=== PATIENT | female | born 1965 | race Caucasian/White ===

== ENCOUNTER 2018-06-14 05:40 | Inpatient (IN) ==
[2018-06-14] MEDS ORDERED: Aspirin 81 MG TAB.CHEW PO ONE (05:55)
[2018-06-14] MEDS ORDERED: Nitroglycerin 0.4 MG TAB.SUBL SL ONE (05:55)
[2018-06-14] MEDS ORDERED: Ondansetron 4 MG/2 ML VIAL IVP ONE (05:58)
--- NOTE | 2018-06-14 05:59 | Emergency Department Note ---
START Narrative - START START: 52-year-old female complains of chest pain. She mentions that started approximately 3 hours prior to her arrival. Pain is coming with right upper extremity pain, shortness of breath, nausea. She describes it as someone coming up in her chest. She took one baby aspirin and 2 nitroglycerin at home and improvement of her symptoms. She mentioned she was recently diagnosed with influenza with a rapid strep test at urgent care, as well as a sinus infection, has been taking amoxicillin, which had given her diarrhea. She does mention a history of elevated blood pressure in the past. This is a start note. I reviewed nursing notes, and vital signs. Care of this patient will be continued with dayshift provider Justyna Parisi PA-C. Please see her documentation for additional details. Patient does have elevated blood pressure. Initial chest pain workup has been ordered. Initially, I ordered aspirin, nitroglycerin, and Zofran.
[2018-06-14 06:30] LABS: BUN/Creatinine Ratio 20 (6-26); Blood Urea Nitrogen 14 mg/dL (6-20); Carbon Dioxide 28 mEq/L (23-29); Chloride 103 mEq/L (98-107); Glucose 112 mg/dL (70-105); Osmolality,Calculated 289 (280-300); Potassium 3.2 mEq/L (3.5-5.1); Sodium 139 mEq/L (136-145); Troponin I < 0.03 ng/mL (< 0.04); eGFR For Non-African Americans > 60 (> 60)
--- NOTE | 2018-06-14 06:30 | Emergency Department Note ---
Disposition Clinical Impression: Hypertensive emergency, Influenza Chest pain Qualifiers: Chest pain type: precordial pain Qualified Code(s): R07.2 - Precordial pain Pulmonary edema Qualifiers: Chronicity: acute Qualified Code(s): J81.0 - Acute pulmonary edema Disposition: Admitted As Inpatient Condition: Fair Chest Pain HPI - General Chief Complaint: ED Chest Pain Stated Complaint: chest pain Time Seen by Provider: 06/14/18 05:44 Source: patient Limitations: no limitations Vital Signs Reviewed: Yes Nursing Notes Reviewed: Yes - History of Present Illness Severity scale (1-10): 8 - Related Data Home Medications Medication Instructions Recorded Confirmed RX: Aspirin Enteric Coated 81 mg PO DAILY 05/20/15 06/14/18 [Aspirin EC] RX: Butalb/Acetaminophen/Caffeine 1 cap PO Q4H PRN 05/20/15 06/14/18 [Fioricet 50-300-40 mg Capsule] RX: metFORMIN [Glucophage] 250 mg PO DAILY 05/20/15 06/14/18 RX: Atorvastatin [Lipitor] 40 mg PO HS 09/21/15 06/14/18 RX: Carvedilol [Coreg] 25 mg PO BID 09/21/15 06/14/18 RX: CloNIDine Patch [Catapres-Tts] 0.3 mg TD QWEEK 07/15/17 06/14/18 RX: Esomeprazole Magnesium [Nexium] 40 mg PO DAILY 07/15/17 06/14/18 RX: Gabapentin [Neurontin] 800 mg PO QID 07/15/17 06/14/18 RX: Lisinopril [Zestril] 40 mg PO QPM 07/15/17 06/14/18 RX: Methocarbamol [Robaxin] 500 mg PO QID 07/15/17 06/14/18 RX: Tizanidine HCl [Zanaflex] 4 mg PO QPM 07/15/17 06/14/18 RX: Albuterol Neb [Proventil Neb] 2.5 mg IH QID 09/30/17 06/14/18 RX: Budesonide/Formoterol 160/4.5 2 puff IH BIDR 09/30/17 06/14/18 [Symbicort 160/4.5] RX: Cholecalciferol (D-3) [Vitamin 1,000 unit PO DAILY 09/30/17 06/14/18 D] RX: Diclofenac Sodium [Voltaren] 1 appl TP QID PRN 09/30/17 06/14/18 RX: Ibuprofen [Motrin] 800 mg PO TID PRN 09/30/17 06/14/18 RX: Ipratropium [ATROVENT Inhaler] 2 puff IH QID 09/30/17 06/14/18 RX: Multivit-Min/FA/Lycopen/Lutein 1 tab PO DAILY 09/30/17 06/14/18 [Certavite Sr-Antioxidant Tab] RX: Nitroglycerin [Nitrostat] 0.4 mg SL Q5M PRN 09/30/17 06/14/18 RX: Potassium Chloride [K-Tab ER] 20 meq PO DAILY 09/30/17 06/14/18 RX: Promethazine [Phenergan] 25 mg PO Q12H PRN 09/30/17 06/14/18 RX: aMILoride [Midamor] 5 mg PO BID 09/30/17 06/14/18 RX: Ergocalciferol (VITAMIN D2) 50,000 unit PO QWEEK 02/16/18 06/14/18 [Vitamin D2] RX: Furosemide [Lasix] 20 mg PO DAILY 02/16/18 06/14/18 Albuterol Sulfate [Albuterol 1 puff IH Q4H PRN 06/14/18 06/14/18 Inhaler] Citalopram Hydrobromide 40 mg PO QPM 06/14/18 06/14/18 [Citalopram HBr] Isosorbide MONOnitrate [Isosorbide 30 mg PO DAILY 06/14/18 06/14/18 Mononitrate ER] Loratadine [Allergy Relief] 10 mg PO DAILY 06/14/18 06/14/18 RX: Amlodipine Besylate 10 mg PO QPM 06/14/18 06/14/18 RX: hydrOXYzine HCl [Hydroxyzine 25 mg PO TID 06/14/18 06/14/18 HCl] Topiramate [Topamax] 100 mg PO BID 06/14/18 06/14/18 Previous Rx's Medication Instructions Recorded RX: Chlorthalidone 50 mg PO QAM 30 Days #30 tablet 02/17/18 RX: Spironolactone [Aldactone] 50 mg PO BID #60 tablet 03/10/18 Allergies Allergy/AdvReac Type Severity Reaction Status Date / Time naproxen Allergy Hives Verified 06/14/18 09:26 Chest Pain PMH - Past Medical History Medical history: Reports: asthma, diabetes, hyperlipidemia, hypertension Surgical history: Reports: other Psychiatric history: Reports: depression [employer] MANAGER history: Reports: dysfunctional uterine bleed, bilateral tubal ligation, other - Social History Smoking Status: Never smoker Alcohol use: Reports: none Drug use: Reports: none Physical Exam - General Limitations: no limitations General appearance: alert, in no apparent distress Course Vital Signs Temperature 98 F 06/14/18 05:41 Pulse Rate 77 06/14/18 05:41 Respiratory Rate 12 06/14/18 05:41 Blood Pressure 235/138 06/14/18 05:41 O2 Sat by Pulse Oximetry 99 06/14/18 05:41 Temperature 97.6 F 06/14/18 16:35 Pulse Rate 62 06/14/18 17:00 Respiratory Rate 12 06/14/18 17:00 Blood Pressure 143/87 06/14/18 17:00 O2 Sat by Pulse Oximetry 93 06/14/18 17:00 Oxygen Delivery Oxygen Delivery Room Air Chest Pain - Lab Data Result diagrams: 06/14/18 05:58 06/14/18 05:58 Lab Results 06/14/18 06/14/18 06/14/18 Range/Units 05:58 05:58 05:58 WBC 8.7 (4.3-11.1) K/mcL RBC 4.80 (3.82-4.97) M/mcL Hgb 13.8 (11.5-15.4) g/dL Hct 41.2 (35.3-44.9) % MCV 85.8 (83.0-100.0) fL MCH 28.8 (28.0-33.3) pg MCHC 33.5 (31.6-35.5) g/dL RDW 13.5 (11.5-14.5) % Plt Count 279 (140-400) K/mcL MPV 11.6 (9.4-12.4) fL Immature Gran % 0.1 (0-4) % Seg Neutrophils % 65.6 % Lymphocytes % 24.4 % Monocytes % 7.4 % Eosinophils % 1.9 % Basophils % 0.6 % Neutrophils # 5.7 (1.6-8.9) K/mcL Lymphocytes # 2.1 (0.6-4.6) K/mcL Monocytes # 0.7 (0.0-1.3) K/mcL Eosinophils # 0.2 (0.0-0.6) K/mcL Basophils # 0.1 (0.0-0.2) K/mcL D-Dimer 416 (0-500) ng/mLFEU Sodium 139 (136-145) mEq/L Potassium 3.2 L (3.5-5.1) mEq/L Chloride 103 (98-107) mEq/L Carbon Dioxide 28 (23-29) mEq/L BUN 14 (6-20) mg/dL Creatinine 0.70 (0.60-1.20) mg/dL Est GFR ( Amer) > 60 (> 60) Est GFR (Non-Af Amer) > 60 (> 60) BUN/Creatinine Ratio 20 (6-26) Glucose 112 H (70-105) mg/dL Calculated Osmolality 289 (280-300) Calcium 9.0 (8.6-10.3) mg/dL Total Bilirubin (0.3-1.0) mg/dL Direct Bilirubin (0.0-0.2) mg/dL Indirect Bilirubin (0.0-1.2) mg/dL AST (13-39) Units/L ALT (7-52) Units/L Alkaline Phosphatase (34-104) Units/L Troponin I < 0.03 (< 0.04) ng/mL Serum Total Protein (6.4-8.9) g/dL Albumin (3.5-5.7) g/dL Globulin (2.4-3.5) g/dL Albumin/Globulin Ratio (1.1-2.2) Urine Color (Yellow) Urine Clarity (Clear) Urine pH (5.0-8.0) pH Units Ur Specific [place] (1.010-1.025) Urine Protein (Neg-Trace) mg/dL Urine Glucose (UA) (Normal) mg/dL Urine Ketones (Negative) mg/dL Urine Blood (Negative) Urine Nitrite (Negative) Urine Bilirubin (Negative) Urine Urobilinogen (Normal) mg/dL Ur Leukocyte Esterase (Negative) Urine Microscopic RBC (0-3) per hpf Urine Microscopic WBC (0-3) per hpf Ur Squamous Epith Cells (None-Few) per lpf Urine Bacteria (None-Few) per hpf Hyaline Casts (None-Few) per lpf Ur Culture Indicated? (NO) 06/14/18 06/14/18 06/14/18 Range/Units 05:58 06:29 11:35 WBC (4.3-11.1) K/mcL RBC (3.82-4.97) M/mcL Hgb (11.5-15.4) g/dL Hct (35.3-44.9) % MCV (83.0-100.0) fL MCH (28.0-33.3) pg MCHC (31.6-35.5) g/dL RDW (11.5-14.5) % Plt Count (140-400) K/mcL MPV (9.4-12.4) fL Immature Gran % (0-4) % Seg Neutrophils % % Lymphocytes % % Monocytes % % Eosinophils % % Basophils % % Neutrophils # (1.6-8.9) K/mcL Lymphocytes # (0.6-4.6) K/mcL Monocytes # (0.0-1.3) K/mcL Eosinophils # (0.0-0.6) K/mcL Basophils # (0.0-0.2) K/mcL D-Dimer (0-500) ng/mLFEU Sodium (136-145) mEq/L Potassium (3.5-5.1) mEq/L Chloride (98-107) mEq/L Carbon Dioxide (23-29) mEq/L BUN (6-20) mg/dL Creatinine (0.60-1.20) mg/dL Est GFR ( Amer) (> 60) Est GFR (Non-Af Amer) (> 60) BUN/Creatinine Ratio (6-26) Glucose (70-105) mg/dL Calculated Osmolality (280-300) Calcium (8.6-10.3) mg/dL Total Bilirubin 0.4 (0.3-1.0) mg/dL Direct Bilirubin 0.0 (0.0-0.2) mg/dL Indirect Bilirubin 0.4 (0.0-1.2) mg/dL AST 11 L (13-39) Units/L ALT 20 (7-52) Units/L Alkaline Phosphatase 64 (34-104) Units/L Troponin I < 0.03 (< 0.04) ng/mL Serum Total Protein 7.1 (6.4-8.9) g/dL Albumin 4.2 (3.5-5.7) g/dL Globulin 2.9 (2.4-3.5) g/dL Albumin/Globulin Ratio 1.4 (1.1-2.2) Urine Color Yellow (Yellow) Urine Clarity Clear (Clear) Urine pH 7.0 (5.0-8.0) pH Units Ur Specific [place] 1.011 (1.010-1.025) Urine Protein 30 H (Neg-Trace) mg/dL Urine Glucose (UA) Normal (Normal) mg/dL Urine Ketones Negative (Negative) mg/dL Urine Blood Negative (Negative) Urine Nitrite Negative (Negative) Urine Bilirubin Negative (Negative) Urine Urobilinogen Normal (Normal) mg/dL Ur Leukocyte Esterase Negative (Negative) Urine Microscopic RBC 0-3 (0-3) per hpf Urine Microscopic WBC 0-3 (0-3) per hpf Ur Squamous Epith Cells Many H (None-Few) per lpf Urine Bacteria None Seen (None-Few) per hpf Hyaline Casts None Seen (None-Few) per lpf Ur Culture Indicated? NO (NO) Attestation Statement - Attestation Attestation: Medical screening examination/treatment/procedure(s) were conducted as a shared visit with non-physician practitioner(s) and myself. I personally evaluated the patient during the encounter. Patient multiple risk factors presenting today with chest pain and elevated blood pressure greater than 230. Patient has been getting over the flu. Unknown medication to help. Pain started earlier this morning and has been associated with worsening symptoms with exertion into the hospital. Partially relieved with nitroglycerin. Nitroglycerin gave her a headache. Patient is undergoing further laboratory investigation. She will require medical management of hypertension as well as a likely admission. Patient did not have any focal neurologic deficits on my exam. Regular rate and rhythm with lungs clear to auscultation bilaterally.
[2018-06-14 06:35] LABS: Basophils # 0.1 K/mcL (0.0-0.2); Basophils % 0.6 %; Eosinophils # 0.2 K/mcL (0.0-0.6); Eosinophils % 1.9 %; Hematocrit 41.2 % (35.3-44.9); Hemoglobin 13.8 g/dL (11.5-15.4); Immature Granulocytes % 0.1 % (0-4); Lymphocytes # 2.1 K/mcL (0.6-4.6); Lymphocytes % 24.4 %; Mean Corpuscular HGB Conc 33.5 g/dL (31.6-35.5); Mean Corpuscular Hemoglobin 28.8 pg (28.0-33.3); Mean Corpuscular Volume 85.8 fL (83.0-100.0); Mean Platelet Volume 11.6 fL (9.4-12.4); Monocytes # 0.7 K/mcL (0.0-1.3); Monocytes % 7.4 %; Neutrophils # 5.7 K/mcL (1.6-8.9); Platelet Count 279 K/mcL (140-400); Red Cell Distribution Width 13.5 % (11.5-14.5); Segmented Neutrophils % 65.6 %
[2018-06-14] MEDS ORDERED: *HR* Morphine 2 MG/ML SYRINGE IVP ONE (06:39)
[2018-06-14] MEDS ORDERED: Nitroglycerin 25 MG/250 ML INFUS..BTL IVC SCH (06:45)
--- NOTE | 2018-06-14 06:48 | Emergency Department Note ---
Disposition Clinical Impression: Hypertensive emergency, Influenza Chest pain Qualifiers: Chest pain type: precordial pain Qualified Code(s): R07.2 - Precordial pain Pulmonary edema Qualifiers: Chronicity: acute Qualified Code(s): J81.0 - Acute pulmonary edema Disposition: Admitted As Inpatient Condition: Fair Referrals: Rosalie Cosby DO [Primary Care Provider] - Forms: ED Satisfaction Letter Chest Pain HPI - General Chief Complaint: ED Chest Pain Stated Complaint: chest pain Time Seen by Provider: 06/14/18 05:44 Source: patient Mode of arrival: private vehicle Limitations: no limitations Vital Signs Reviewed: Yes Nursing Notes Reviewed: Yes - History of Present Illness HPI Narrative: Patient with recent diagnosis of influenza, history of hypertension on three blood pressure meds, diabetes and hyperlipidemia presents from home for evaluation of chest pain and shortness of breath. The chest pain woke her from sleep. It radiates into her left arm. She took two of her prescribed nitrogl ycerin with little to no relief so she came here for evaluation. The shortness of breath she attributes to her known COPD and states that her blood pressure has been elevated this week so for the past three days. She has not used her inhalers because when she uses them her blood pressure typically goes up. Patient was diagnosed with influenza on Saturday of last week. She was not started on any antivirals, but states that she was given a prescription for amoxicillin for a "sinus infection." She denies fever chills nausea vomiting diarrhea abdominal pain dizziness, vertigo, syncope, rash, sore throat, facial pain or swelling, neck pain or stiffness. She does describe a frontal headache, but states that it started shortly after taking the second nitroglycerin. She has had a headache like this in the past. It came on gradually. It is not the worst headache of her life. Pt complaint: chest pain Onset (ago): hour(s) Duration: constant Onset: during rest, awoke with symptoms Pain Location: substernal Severity: moderate Severity scale (1-10): 8 Quality: heaviness Pain Radiation: RUE Improves with: nothing Worsens with: nothing (Social) Context: recent illness (Dx - Influenza this past Saturday. Patient states that she had a positive flu test.), history of DVT/PE (DVT several years ago. Not on any oral anticoagulants.) Associated symptoms: Reports: nausea, dyspnea (Hx of COPD. Has not used her inhalers in 3 days b/c her BP has been up and she feels that her inhalers make her BP increase.). Denies: vomiting, diaphoresis, sense of impending doom, syn cope, palpitations, fever, cough, leg swelling, other Treatments prior to arrival chest pain: none - Related Data On Oral Contraceptives: No Home Medications Medication Instructions Recorded Confirmed Albuterol Sulfate [Albuterol 1 - 2 puff IH Q4HR PRN 05/20/15 02/16/18 Inhaler] Amlodipine [Norvasc] 10 mg PO QPM 05/20/15 02/16/18 Aspirin Enteric Coated [Aspirin EC] 81 mg PO DAILY 05/20/15 02/16/18 Butalb/Acetaminophen/Caffeine 1 cap PO Q4H PRN 05/20/15 02/16/18 [Fioricet 50-300-40 mg Capsule] Citalopram [CeleXA] 40 mg PO QPM 05/20/15 02/16/18 Loratadine [Claritin] 10 mg PO DAILY 05/20/15 02/16/18 Topiramate [Topamax] 50 mg PO BID 05/20/15 02/16/18 metFORMIN [Glucophage] 250 mg PO DAILY 05/20/15 02/16/18 Atorvastatin [Lipitor] 40 mg PO HS 09/21/15 02/16/18 Carvedilol [Coreg] 25 mg PO BID 09/21/15 02/16/18 CloNIDine Patch [Catapres-Tts] 0.3 mg TD QWEEK 07/15/17 02/16/18 Esomeprazole Magnesium [Nexium] 40 mg PO DAILY 07/15/17 02/16/18 Gabapentin [Neurontin] 800 mg PO QID 07/15/17 02/16/18 Lisinopril [Zestril] 40 mg PO QPM 07/15/17 02/16/18 Methocarbamol [Robaxin] 500 - 1,000 mg PO QID 07/15/17 02/16/18 Tizanidine HCl [Zanaflex] 4 mg PO TID 07/15/17 02/16/18 Albuterol Neb [Proventil Neb] 2.5 mg IH QID 09/30/17 02/16/18 Budesonide/Formoterol 160/4.5 2 puff IH BIDR 09/30/17 02/16/18 [Symbicort 160/4.5] Cholecalciferol (D-3) [Vitamin D] 1,000 unit PO DAILY 09/30/17 02/16/18 Citalopram [CeleXA] 20 mg PO QAM 09/30/17 02/16/18 Diclofenac Sodium [Voltaren] 1 appl TP QID 09/30/17 02/16/18 Ibuprofen [Motrin] 800 mg PO TID PRN 09/30/17 02/16/18 Ipratropium [ATROVENT Inhaler] 2 puff IH QID 09/30/17 02/16/18 Multivit-Min/FA/Lycopen/Lutein 1 tab PO DAILY 09/30/17 02/16/18 [Certavite Sr-Antioxidant Tab] Nitroglycerin [Nitrostat] 0.4 mg SL Q5M PRN 09/30/17 02/16/18 Potassium Chloride [K-Tab ER] 20 meq PO DAILY 09/30/17 02/16/18 Promethazine [Phenergan] 25 mg PO Q12H 09/30/17 02/16/18 aMILoride [Midamor] 5 mg PO BID 09/30/17 02/16/18 Ergocalciferol (VITAMIN D2) 50,000 unit PO QWEEK 02/16/18 02/16/18 [Vitamin D2] Furosemide [Lasix] 20 mg PO DAILY 02/16/18 02/16/18 Previous Rx's Medication Instructions Recorded Docusate [Colace] 100 mg PO BID #30 capsule 09/30/17 Chlorthalidone 50 mg PO QAM 30 Days #30 tablet 02/17/18 Spironolactone [Aldactone] 25 mg PO BID 30 Days #60 tablet 02/17/18 Spironolactone [Aldactone] 50 mg PO BID #60 tablet 03/10/18 Allergies Allergy/AdvReac Type Severity Reaction Status Date / Time naproxen Allergy Hives Verified 10/15/17 10:24 All systems ED: reviewed and negative except as stated. Review of Systems: As Per HPI Constitutional: Denies: fever, chills, weakness, weight change, night sweats Eyes: Denies: eye pain, eye discharge, vision change ENT ED: Denies: ear pain, throat pain, congestion, dysphagia Cardiovascular: Reports: as per HPI, chest pain, dyspnea on exertion ("a little"). Denies: palpitations, orthopnea, edema, syncope, paroxysmal nocturnal dyspnea Respiratory: Reports: as per HPI, dyspnea. Denies: cough, wheezes, hemoptysis, stridor, sputum production Gastrointestinal: Reports: nausea. Denies: abdominal pain, vomiting, diarrhea, constipation, hematemesis, melena, hematochezia Genitourinary: Denies: urgency, dysuria, frequency, hematuria Musculoskeletal: Denies: back pain, neck pain, joint swelling, arthralgia, myalgia Integumentary: Denies: rash Neurological: Denies: headache, weakness, numbness, paresthesias, confusion, abnormal gait, vertigo Endocrine: Denies: fatigue, heat or cold intolerance, polydipsia, polyuria Hematological/Lymphatic: Denies: easy bleeding, easy bruising, lymphadenopathy Allergic/Immunologic: Denies: facial swelling, urticaria Chest Pain PMH - Past Medical History Medical history: Reports: asthma, diabetes, hyperlipidemia, hypertension Surgical history: Reports: other Psychiatric history: Reports: depression Prior Cardiac Testing/Procedures: Cardiac Angiogram (2 yrs ago - no stents placed) SMT TECHNICIAN history: Reports: dysfunctional uterine bleed, bilateral tubal ligation, other LMP comments: unsure - Social History Smoking Status: Never smoker Alcohol use: Reports: none Drug use: Reports: none Physical Exam - General Limitations: no limitations General appearance: alert, in no apparent distress - Head Head exam: atraumatic, normocephalic, normal inspection - Eye Eye exam: Present: normal appearance, PERRL. Absent: scleral icterus, conjunctival injection, periorbital swelling - ENT ENT exam: mucous membranes dry - Neck Neck exam: Present: normal inspection, full ROM, trachea midline. Absent: tenderness, meningismus, lymphadenopathy - Chest Chest inspection: Present: normal inspection, symmetric chest wall rise. Absent: tenderness - Respiratory Respiratory exam: Present: normal lung sounds bilaterally. Absent: respiratory distress, wheezes, stridor, accessory muscle use, prolonged expiratory phase - Cardiovascular Cardiovascular exam: Present: regular rate, normal rhythm, normal heart sounds - Abdominal Exam Abdominal exam: Present: soft. Absent: tenderness, distention, guarding, rebound, mass, pulsatile mass - Extremities Exam Extremities exam: Present: normal inspection, full ROM, normal capillary refill. Absent: tenderness, pedal edema - Back Exam Back exam: Present: normal inspection - Neurological Exam Neurological exam: Present: alert, oriented X3, CN II-XII intact, normal gait - Psychiatric Psychiatric exam: Present: normal affect, normal mood - Skin Skin exam: Present: warm, dry, intact, normal color Course Course Narrative: Patient presents for chest pain and shortness of breath that woke her from sleep. She has multiple risk factors for ACS. She had a heart catheterization done 2-1/2 years ago. I have not been able to find the report for this. She did not receive any stents. She is most likely having CP and dyspnea from her HTN. SHe has taken two NTG at home. ASA and additional NTG have been ordered. Patient states that she has a headache from the NTG. She is requesting something for pain. Morphine ordered. Patient is feeling better but states that the pain is "still there" - referring to the chest pressure. Xray shows pulmonary edema. Troponin is normal. EKG unchanged compared to previous. D-dimer added as pt has remote hx of DVT and is not currently anti- coagulated. D-dimer negative. Case discussed with Dr. Russo. She recommends switching NTG drip to Nicardipine and giving lasix 80 iv. These meds have been ordered. Patient accepted for admission. Vital Signs Temperature 98 F 06/14/18 05:41 Pulse Rate 77 06/14/18 05:41 Respiratory Rate 12 06/14/18 05:41 Blood Pressure 235/138 06/14/18 05:41 O2 Sat by Pulse Oximetry 99 06/14/18 05:41 Temperature 98 F 06/14/18 05:48 Pulse Rate 63 06/14/18 07:08 Respiratory Rate 13 06/14/18 07:08 Blood Pressure 206/105 06/14/18 07:08 O2 Sat by Pulse Oximetry 97 06/14/18 07:08 Oxygen Delivery Oxygen Delivery Room Air Chest Pain - Medical Records Medical records reviewed: Yes I reviewed the patient's medical records. - Lab Data Lab results reviewed: Yes I reviewed the patient's lab results. Lab results narrative: Laboratory Last Values WBC 8.7 K/mcL (4.3-11.1) 06/14/18 05:58 RBC 4.80 M/mcL (3.82-4.97) 06/14/18 05:58 Hgb 13.8 g/dL (11.5-15.4) 06/14/18 05:58 Hct 41.2 % (35.3-44.9) 06/14/18 05:58 MCV 85.8 fL (83.0-100.0) 06/14/18 05:58 MCH 28.8 pg (28.0-33.3) 06/14/18 05:58 MCHC 33.5 g/dL (31.6-35.5) 06/14/18 05:58 RDW 13.5 % (11.5-14.5) 06/14/18 05:58 Plt Count 279 K/mcL (140-400) 06/14/18 05:58 MPV 11.6 fL (9.4-12.4) 06/14/18 05:58 Immature Gran % 0.1 % (0-4) 06/14/18 05:58 Seg Neutrophils % 65.6 % 06/14/18 05:58 Lymphocytes % 24.4 % 06/14/18 05:58 Monocytes % 7.4 % 06/14/18 05:58 Eosinophils % 1.9 % 06/14/18 05:58 Basophils % 0.6 % 06/14/18 05:58 Neutrophils # 5.7 K/mcL (1.6-8.9) 06/14/18 05:58 Lymphocytes # 2.1 K/mcL (0.6-4.6) 06/14/18 05:58 Monocytes # 0.7 K/mcL (0.0-1.3) 06/14/18 05:58 Eosinophils # 0.2 K/mcL (0.0-0.6) 06/14/18 05:58 Basophils # 0.1 K/mcL (0.0-0.2) 06/14/18 05:58 D-Dimer 416 ng/mLFEU (0-500) 06/14/18 05:58 Sodium 139 mEq/L (136-145) 06/14/18 05:58 Potassium 3.2 mEq/L (3.5-5.1) L 06/14/18 05:58 Chloride 103 mEq/L (98-107) 06/14/18 05:58 Carbon Dioxide 28 mEq/L (23-29) 06/14/18 05:58 BUN 14 mg/dL (6-20) 06/14/18 05:58 Creatinine 0.70 mg/dL (0.60-1.20) 06/14/18 05:58 Est GFR ( Amer) > 60 (> 60) 06/14/18 05:58 Est GFR (Non-Af Amer) > 60 (> 60) 06/14/18 05:58 BUN/Creatinine Ratio 20 (6-26) 06/14/18 05:58 Glucose 112 mg/dL (70-105) H 06/14/18 05:58 Calculated Osmolality 289 (280-300) 06/14/18 05:58 Calcium 9.0 mg/dL (8.6-10.3) 06/14/18 05:58 Total Bilirubin 0.4 mg/dL (0.3-1.0) 06/14/18 05:58 Direct Bilirubin 0.0 mg/dL (0.0-0.2) 06/14/18 05:58 Indirect Bilirubin 0.4 mg/dL (0.0-1.2) 06/14/18 05:58 AST 11 Units/L (13-39) L 06/14/18 05:58 ALT 20 Units/L (7-52) 06/14/18 05:58 Alkaline Phosphatase 64 Units/L (34-104) 06/14/18 05:58 Troponin I < 0.03 ng/mL (< 0.04) 06/14/18 05:58 Serum Total Protein 7.1 g/dL (6.4-8.9) 06/14/18 05:58 Albumin 4.2 g/dL (3.5-5.7) 06/14/18 05:58 Globulin 2.9 g/dL (2.4-3.5) 06/14/18 05:58 Albumin/Globulin Ratio 1.4 (1.1-2.2) 06/14/18 05:58 Urine Color Yellow (Yellow) 06/14/18 06:29 Urine Clarity Clear (Clear) 06/14/18 06:29 Urine pH 7.0 pH Units (5.0-8.0) 06/14/18 06:29 Ur Specific [place] 1.011 (1.010-1.025) 06/14/18 06:29 Urine Protein 30 mg/dL (Neg-Trace) H 06/14/18 06:29 Urine Glucose (UA) Normal mg/dL (Normal) 06/14/18 06:29 Urine Ketones Negative mg/dL (Negative) 06/14/18 06:29 Urine Blood Negative (Negative) 06/14/18 06:29 Urine Nitrite Negative (Negative) 06/14/18 06:29 Urine Bilirubin Negative (Negative) 06/14/18 06:29 Urine Urobilinogen Normal mg/dL (Normal) 06/14/18 06:29 Ur Leukocyte Esterase Negative (Negative) 06/14/18 06:29 Urine Microscopic RBC 0-3 per hpf (0-3) 06/14/18 06:29 Urine Microscopic WBC 0-3 per hpf (0-3) 06/14/18 06:29 Ur Squamous Epith Cells Many per lpf (None-Few) H 06/14/18 06:29 Urine Bacteria None Seen per hpf (None-Few) 06/14/18 06:29 Hyaline Casts None Seen per lpf (None-Few) 06/14/18 06:29 Ur Culture Indicated? NO (NO) 06/14/18 06:29 Result diagrams: 06/14/18 05:58 06/14/18 05:58 Lab Results 06/14/18 06/14/18 06/14/18 Range/Units 05:58 05:58 05:58 WBC 8.7 (4.3-11.1) K/mcL RBC 4.80 (3.82-4.97) M/mcL Hgb 13.8 (11.5-15.4) g/dL Hct 41.2 (35.3-44.9) % MCV 85.8 (83.0-100.0) fL MCH 28.8 (28.0-33.3) pg MCHC 33.5 (31.6-35.5) g/dL RDW 13.5 (11.5-14.5) % Plt Count 279 (140-400) K/mcL MPV 11.6 (9.4-12.4) fL Immature Gran % 0.1 (0-4) % Seg Neutrophils % 65.6 % Lymphocytes % 24.4 % Monocytes % 7.4 % Eosinophils % 1.9 % Basophils % 0.6 % Neutrophils # 5.7 (1.6-8.9) K/mcL Lymphocytes # 2.1 (0.6-4.6) K/mcL Monocytes # 0.7 (0.0-1.3) K/mcL Eosinophils # 0.2 (0.0-0.6) K/mcL Basophils # 0.1 (0.0-0.2) K/mcL D-Dimer 416 (0-500) ng/mLFEU Sodium 139 (136-145) mEq/L Potassium 3.2 L (3.5-5.1) mEq/L Chloride 103 (98-107) mEq/L Carbon Dioxide 28 (23-29) mEq/L BUN 14 (6-20) mg/dL Creatinine 0.70 (0.60-1.20) mg/dL Est GFR ( Amer) > 60 (> 60) Est GFR (Non-Af Amer) > 60 (> 60) BUN/Creatinine Ratio 20 (6-26) Glucose 112 H (70-105) mg/dL Calculated Osmolality 289 (280-300) Calcium 9.0 (8.6-10.3) mg/dL Total Bilirubin (0.3-1.0) mg/dL Direct Bilirubin (0.0-0.2) mg/dL Indirect Bilirubin (0.0-1.2) mg/dL AST (13-39) Units/L ALT (7-52) Units/L Alkaline Phosphatase (34-104) Units/L Troponin I < 0.03 (< 0.04) ng/mL Serum Total Protein (6.4-8.9) g/dL Albumin (3.5-5.7) g/dL Globulin (2.4-3.5) g/dL Albumin/Globulin Ratio (1.1-2.2) Urine Color (Yellow) Urine Clarity (Clear) Urine pH (5.0-8.0) pH Units Ur Specific [place] (1.010-1.025) Urine Protein (Neg-Trace) mg/dL Urine Glucose (UA) (Normal) mg/dL Urine Ketones (Negative) mg/dL Urine Blood (Negative) Urine Nitrite (Negative) Urine Bilirubin (Negative) Urine Urobilinogen (Normal) mg/dL Ur Leukocyte Esterase (Negative) Urine Microscopic RBC (0-3) per hpf Urine Microscopic WBC (0-3) per hpf Ur Squamous Epith Cells (None-Few) per lpf Urine Bacteria (None-Few) per hpf Hyaline Casts (None-Few) per lpf Ur Culture Indicated? (NO) 06/14/18 06/14/18 Range/Units 05:58 06:29 WBC (4.3-11.1) K/mcL RBC (3.82-4.97) M/mcL Hgb (11.5-15.4) g/dL Hct (35.3-44.9) % MCV (83.0-100.0) fL MCH (28.0-33.3) pg MCHC (31.6-35.5) g/dL RDW (11.5-14.5) % Plt Count (140-400) K/mcL MPV (9.4-12.4) fL Immature Gran % (0-4) % Seg Neutrophils % % Lymphocytes % % Monocytes % % Eosinophils % % Basophils % % Neutrophils # (1.6-8.9) K/mcL Lymphocytes # (0.6-4.6) K/mcL Monocytes # (0.0-1.3) K/mcL Eosinophils # (0.0-0.6) K/mcL Basophils # (0.0-0.2) K/mcL D-Dimer (0-500) ng/mLFEU Sodium (136-145) mEq/L Potassium (3.5-5.1) mEq/L Chloride (98-107) mEq/L Carbon Dioxide (23-29) mEq/L BUN (6-20) mg/dL Creatinine (0.60-1.20) mg/dL Est GFR ( Amer) (> 60) Est GFR (Non-Af Amer) (> 60) BUN/Creatinine Ratio (6-26) Glucose (70-105) mg/dL Calculated Osmolality (280-300) Calcium (8.6-10.3) mg/dL Total Bilirubin 0.4 (0.3-1.0) mg/dL Direct Bilirubin 0.0 (0.0-0.2) mg/dL Indirect Bilirubin 0.4 (0.0-1.2) mg/dL AST 11 L (13-39) Units/L ALT 20 (7-52) Units/L Alkaline Phosphatase 64 (34-104) Units/L Troponin I (< 0.04) ng/mL Serum Total Protein 7.1 (6.4-8.9) g/dL Albumin 4.2 (3.5-5.7) g/dL Globulin 2.9 (2.4-3.5) g/dL Albumin/Globulin Ratio 1.4 (1.1-2.2) Urine Color Yellow (Yellow) Urine Clarity Clear (Clear) Urine pH 7.0 (5.0-8.0) pH Units Ur Specific [place] 1.011 (1.010-1.025) Urine Protein 30 H (Neg-Trace) mg/dL Urine Glucose (UA) Normal (Normal) mg/dL Urine Ketones Negative (Negative) mg/dL Urine Blood Negative (Negative) Urine Nitrite Negative (Negative) Urine Bilirubin Negative (Negative) Urine Urobilinogen Normal (Normal) mg/dL Ur Leukocyte Esterase Negative (Negative) Urine Microscopic RBC 0-3 (0-3) per hpf Urine Microscopic WBC 0-3 (0-3) per hpf Ur Squamous Epith Cells Many H (None-Few) per lpf Urine Bacteria None Seen (None-Few) per hpf Hyaline Casts None Seen (None-Few) per lpf Ur Culture Indicated? NO (NO) - Radiology Data Radiology results reviewed: Yes I reviewed the patient's radiology results. Chest X-Ray 06/14/18 05:47 IMPRESSION: Findings are favored to represent pulmonary edema. D/ / Eloy Zazueta MD / Eloy Zazueta MD Interpreting Provider: Eloy Zazueta MD - EKG Data EKG attestation: Yes I reviewed and interpreted this EKG. EKG shows normal: sinus rhythm Rate: normal Rhythm: NSR T wave inversions noted in: aVR, v1 When compared to previous EKG there are: no significant changes Interpretation: nonspecific ST-T wave changes - Core Measures AMI Core Measures Followed: Yes Heart Score - Score History: Moderately Suspicious EKG: Non Specific repolarisation Disturbance Age: 45-65 Risk Factors: Equal/Greater than 3 risk factor or history of atherosclerotic disease Troponin: 1-3x normal limit HEART Score Total: 6
[2018-06-14 06:56] LABS: Bilirubin,Urine Negative (Negative); Blood,Urine Negative (Negative); Clarity,Urine Clear (Clear); Color,Urine Yellow (Yellow); Glucose,Urine (UA) Normal (Normal); Ketones,Urine Negative (Negative); Leukocyte Esterase,Urine Negative (Negative); Nitrite,Urine Negative (Negative); Protein,Urine 30 mg/dL (Neg-Trace); Specific Gravity,Urine 1.011 (1.010-1.025); Urobilinogen,Urine Normal (Normal)
[2018-06-14 07:08] LABS: Bacteria,Urine None Seen per hpf (None-Few); Hyaline Casts,Urine None Seen per lpf (None-Few); RBC,Urine 0-3 per hpf (0-3); Squamous Epithelial Cell,Urine Many per lpf (None-Few); WBC,Urine 0-3 per hpf (0-3)
[2018-06-14 07:35] LABS: Albumin 4.2 g/dL (3.5-5.7); Albumin/Globulin Ratio 1.4 (1.1-2.2); Bilirubin,Indirect 0.4 mg/dL (0.0-1.2); Bilirubin,Total 0.4 mg/dL (0.3-1.0); Globulin 2.9 g/dL (2.4-3.5); Total Protein 7.1 g/dL (6.4-8.9)
[2018-06-14] MEDS ORDERED: Furosemide 40 MG/4 ML VIAL IVP ONE (08:07)
[2018-06-14] MEDS ORDERED: niCARdipine 40 MG/200 ML MLS IVC SCH (08:15)
[2018-06-14] MEDS: niCARdipine 40 MG/200 ML MLS IVC SCH (08:34)
[2018-06-14] MEDS ORDERED: Naloxone 0.4 MG/ML INJ IVP PRN (08:43)
[2018-06-14] MEDS ORDERED: Acetaminophen 325 MG TABLET PO PRN (08:43)
--- NOTE | 2018-06-14 08:50 | Internal Med History&Physical ---
Date of Encounter: 06/14/18 Time of Encounter: 09:18 Internal Medicine - H&P: HPI Chief complaint: Shortness of breath and chest pain Admitted From: Home Plans for Post Hospital Care: Home History of present illness: Ms. Neves is a 52 year old female with medical history of hypertension, with history of difficult control on multiple medications, hyperlipidemia, asthma and diabetes mellitus who presented to the ER complaining of shortness of breath which started in the middle of the night as well as chest pain and chest tightness. The patient was seen in the emergency room with her sister at the bedside and she reports having always had trouble controlling her blood pressure, however yesterday she noted an increase in her blood pressure throughout the day despite compliance with her medications. She was recently diagnosed with the flu and had been taking loperamide for diarrhea. She woke up at 3 AM this morning with sudden chest tightness and difficulty breathing associated with pleuritic chest pain non-radiating with no known relieving or aggravating factors. She denies fever or chills, she denies rhinorrhea, she denies sore throat, she denies leg edema, she denies cough. Her also has the flu. She denies recent travel or calf tenderness. She reports having had diarrhea of 10-14 bowel movement since she was started taking Augmentin on Monday 06/11 for a sinus infection. She however stopped taking antibiotics about 2 days ago. She has no had diarrhea since yesterday She denies vomiting, but she has nausea. She denies dizziness, diaphoresis, PND or orthpnea. She has a hx of chronic migraines She denies illicit drug use, she is a non-smoker ON presentation, vitals showed blood pressure elevated with MAP of 138 Work up showed unremarkable CBC, Chem with mild hypokalemia, LFT, Trop, BNP, Coag WNL. UA is unremarkable CXR showed pulm edema She was not hypoxic Her CP did not relieve with multple nitros so she was started on a nitro drip. We recommended nicardipine drip and Stat lasix She will be admitted inpatient for Hypertensive emergency with pulm edema Past Med Surg Social Fam HX - Past Medical History Medical history: asthma, diabetes, hyperlipidemia, hypertension Additional medical history: chronic back pain Psychiatric history: depression - Past Surgical History Surgical History: other Additional surgical history: cardiac cath, TUBAL, ANDOMINAL CYST REMOVAL, Partial hysterectomy - Social History Smoking Status: Never smoker Smokeless Tobacco Status: No Alcohol use: none Drug use: none - Family History Father Hx Family Cardiac Disorders: Yes ([place]) Mother Living Status: Still Living Hx Family Endocrine Disorder: Yes (stage 3 KD) Internal Medicine - H&P: Meds Albuterol Sulfate [Albuterol Inhaler] 1 - 2 puff IH Q4HR PRN 05/20/15 [History] Amlodipine [Norvasc] 10 mg PO QPM 05/20/15 [History] Aspirin Enteric Coated [Aspirin EC] 81 mg PO DAILY 05/20/15 [History] Butalb/Acetaminophen/Caffeine [Fioricet 50-300-40 mg Capsule] 1 cap PO Q4H PRN 05/20/15 [History] Citalopram [CeleXA] 40 mg PO QPM 05/20/15 [History] Loratadine [Claritin] 10 mg PO DAILY 05/20/15 [History] Topiramate [Topamax] 50 mg PO BID 05/20/15 [History] metFORMIN [Glucophage] 250 mg PO DAILY 05/20/15 [History] Atorvastatin [Lipitor] 40 mg PO HS 09/21/15 [History] Carvedilol [Coreg] 25 mg PO BID 09/21/15 [History] CloNIDine Patch [Catapres-Tts] 0.3 mg TD QWEEK 07/15/17 [History] Esomeprazole Magnesium [Nexium] 40 mg PO DAILY 07/15/17 [History] Gabapentin [Neurontin] 800 mg PO QID 07/15/17 [History] Lisinopril [Zestril] 40 mg PO QPM 07/15/17 [History] Methocarbamol [Robaxin] 500 - 1,000 mg PO QID 07/15/17 [History] Tizanidine HCl [Zanaflex] 4 mg PO TID 07/15/17 [History] Albuterol Neb [Proventil Neb] 2.5 mg IH QID 09/30/17 [History] Budesonide/Formoterol 160/4.5 [Symbicort 160/4.5] 2 puff IH BIDR 09/30/17 [History] Cholecalciferol (D-3) [Vitamin D] 1,000 unit PO DAILY 09/30/17 [History] Citalopram [CeleXA] 20 mg PO QAM 09/30/17 [History] Diclofenac Sodium [Voltaren] 1 appl TP QID 09/30/17 [History] Docusate [Colace] 100 mg PO BID #30 capsule 09/30/17 [Rx] Ibuprofen [Motrin] 800 mg PO TID PRN 09/30/17 [History] Ipratropium [ATROVENT Inhaler] 2 puff IH QID 09/30/17 [History] Multivit-Min/FA/Lycopen/Lutein [Certavite Sr-Antioxidant Tab] 1 tab PO DAILY 09/30/17 [History] Nitroglycerin [Nitrostat] 0.4 mg SL Q5M PRN 09/30/17 [History] Potassium Chloride [K-Tab ER] 20 meq PO DAILY 09/30/17 [History] Promethazine [Phenergan] 25 mg PO Q12H 09/30/17 [History] aMILoride [Midamor] 5 mg PO BID 09/30/17 [History] Ergocalciferol (VITAMIN D2) [Vitamin D2] 50,000 unit PO QWEEK 02/16/18 [History] Furosemide [Lasix] 20 mg PO DAILY 02/16/18 [History] Chlorthalidone 50 mg PO QAM 30 Days #30 tablet 02/17/18 [Rx] Spironolactone [Aldactone] 25 mg PO BID 30 Days #60 tablet 02/17/18 [Rx] Spironolactone [Aldactone] 50 mg PO BID #60 tablet 03/10/18 [Rx] Allergy/AdvReac Type Severity Reaction Status Date / Time naproxen Allergy Hives Verified 10/15/17 10:24 All Systems PM: A 10-system review of systems was performed and is negative for pertinent findings except as documented above in the HPI. - Constitutional Constitutional: as per HPI - EENT Eyes: as per HPI Ears: as per HPI Nose, mouth and throat: as per HPI - Cardiovascular Cardiovascular ROS IM: as per HPI - Respiratory Respiratory: as per HPI - Gastrointestinal Gastrointestinal: as per HPI - Genitourinary Genitourinary: as per HPI - Musculoskeletal Musculoskeletal ROS IM: as per HPI - Integumentary Integumentary IM: as per HPI - Neurological Neurological ROS: as per HPI - Hematologic/Lymphatic Hematologic/Lymphatic: as per HPI - Constitutional Vitals: Temp Pulse Resp BP Pulse Ox 98 F 73 17 209/110 97 06/14/18 05:48 06/14/18 08:41 06/14/18 08:41 06/14/18 08:41 06/14/18 08:41 General appearance: Present: mild distress, A&O X 3, pleasant, obese Exam: Hypertensive, speaks full sentences, anxious \ - Head Head exam: Present: atraumatic, normocephalic - Eye Eye exam: Present: PERRL, conjuntiva pink, sclera anicteric Pupils: Present: PERRL - Neck Neck exam general surgery: Present: supple, trachea midline. Absent: lymphadenopathy - Respiratory Respiratory exam: Present: CTAB. Absent: accessory muscle use, rales, rhonchi, wheezes - Cardiovascular Cardiovascular exam: Present: RRR, +S1, +S2. Absent: diastolic murmur, gallop, rubs, systolic murmur - GI/Abdominal GI/Abdominal exam: Present: normal bowel sounds, soft, no peritoneal signs. Absent: distended, tenderness - Extremities Exam Extremities exam: Present: warm, radial pulses palpable and symmetrical. Absent: calf tenderness, cyanotic, pedal edema - Neurological Exam Neurological exam: Present: alert, CN II-XII intact, oriented X3, no focal deficits. Absent: pronater drift, facial droop, speech deficit - Skin Skin exam: Present: dry, intact Internal Med - H&P Results - Labs CBC & Chem 7: 06/14/18 05:58 06/14/18 05:58 Labs: Short CBC 06/14/18 Range/Units 05:58 WBC 8.7 (4.3-11.1) K/mcL Hgb 13.8 (11.5-15.4) g/dL Hct 41.2 (35.3-44.9) % Plt Count 279 (140-400) K/mcL Neutrophils # 5.7 (1.6-8.9) K/mcL BMP 06/14/18 05:58 Sodium 139 Potassium 3.2 L Chloride 103 Carbon Dioxide 28 BUN 14 Creatinine 0.70 Glucose 112 H Calcium 9.0 Cardiac Enzymes 06/14/18 Range/Units 05:58 Troponin I < 0.03 (< 0.04) ng/mL Liver Function 06/14/18 Range/Units 05:58 Total Bilirubin 0.4 (0.3-1.0) mg/dL Direct Bilirubin 0.0 (0.0-0.2) mg/dL AST 11 L (13-39) Units/L ALT 20 (7-52) Units/L Alkaline Phosphatase 64 (34-104) Units/L Albumin 4.2 (3.5-5.7) g/dL Urine 06/14/18 Range/Units 06:29 Urine Color Yellow (Yellow) Urine Clarity Clear (Clear) Urine pH 7.0 (5.0-8.0) pH Units Ur Specific [place] 1.011 (1.010-1.025) Urine Protein 30 H (Neg-Trace) mg/dL Urine Glucose (UA) Normal (Normal) mg/dL - Impressions ITS Impressions Chest X-Ray 06/14/18 05:47 IMPRESSION: Findings are favored to represent pulmonary edema. D/ / Eloy Zazueta MD / Eloy Zazueta MD Interpreting Provider: Eloy Zazueta MD - Assessment and plan (1) Chest pain Current Visit: Yes Status: Acute Assessment and plan: Likely due to uncontrolled BP She reports a negative cath 2-3 years ago, cannot see it on chart Initial trop negative EKG with no ischemic changes Will cycle trops and obtain ECHO Qualifiers: Chest pain type: precordial pain Qualified Code(s): R07.2 - Precordial pain (2) Hypertensive emergency Current Visit: Yes Status: Acute Assessment and plan: Continue Nicardipine drip and monitor Resume home medications once verified (3) Influenza Current Visit: Yes Status: Acute Assessment and plan: Diagnosed with influenza on 06/11 Continue supportive care (4) Pulmonary edema Current Visit: Yes Status: Acute Assessment and plan: Due to Uncontrolled HTN Currently not hypoxic, not requiring O2 Lasix 80mg IV STAT, continue with IV 40mg lasix daily Continue close monitoring Follow ECHO reports, prior ECHO showed preserved EF Qualifiers: Chronicity: acute Qualified Code(s): J81.0 - Acute pulmonary edema (5) Hypokalemia Current Visit: Yes Status: Acute Assessment and plan: Replaced po, continue to monitor (6) Migraines Current Visit: Yes Status: Chronic Assessment and plan: Resume home meds when verified Qualifiers: Migraine type: unspecified Status migrainosus presence: without status migrainosus Intractability: not intractable Qualified Code(s): G43.909 - Migraine, unspecified, not intractable, without status migrainosus (7) Asthma Current Visit: Yes Status: Chronic Assessment and plan: Duonebs q4h prn Resume home meds when verified No exacerbation at this time Qualifiers: Asthma severity: mild Asthma persistence: intermittent Asthma complication type: uncomplicated Qualified Code(s): J45.20 - Mild intermittent asthma, uncomplicated (8) Diabetes mellitus, type 2 Current Visit: Yes Status: Chronic Assessment and plan: FS ACHS Sliding scale insulin A1C with am labs Qualifiers: Diabetes mellitus regional intermodal truck driver insulin use: without regional intermodal truck driver use Diabetes mellitus complication status: without complication Qualified Code(s): E11.9 - Type 2 diabetes mellitus without complications - Time Spent With Patient Total time spent is greater than 50% in coordination of care (as documented) at patient's floor/unit and/or counseling patient:
[2018-06-14] MEDS ORDERED: Ipratropium/Albuterol Neb 3 ML IH PRN (09:17)
[2018-06-14] MEDS ORDERED: D5% in Water 1,000 ML IVC PRN (09:35)
[2018-06-14] MEDS ORDERED: Dextrose Gel 15 GM/37.5 ML TUBE PO PRN ×2 (09:35)
[2018-06-14] MEDS ORDERED: *HR* Dextrose 50 % in Water (Syg) 50 ML SYRINGE IVP PRN (09:35)
[2018-06-14] MEDS ORDERED: (Diclofenac Sodium [Voltaren] 1 APPL) TP PRN (10:05)
[2018-06-14] MEDS ORDERED: Nitroglycerin 0.4 MG TAB.SUBL SL PRN (10:05)
[2018-06-14] MEDS ORDERED: CloNIDine Patch 0.3 MG PATCH (WEEKLY) TD SCH (10:15)
[2018-06-14] MEDS: aMILoride 5 MG TABLET PO SCH ×2 (15:33→21:03)
[2018-06-14] MEDS: Isosorbide MONOnitrate (24 HR) 30 MG TAB.ER.24H PO SCH (15:33)
[2018-06-14] MEDS: Acetaminophen/Butalbital/CaffeineTABLET PO PRN (15:36)
[2018-06-14] MEDS: Ipratropium 1 PUFF INHALER IH SCH ×3 (16:25→22:47)
[2018-06-14] MEDS: Insulin LISPRO 300 UNITS/3 ML VIAL SQ SCH ×3 (16:33→21:09)
[2018-06-14] MEDS: Methocarbamol 500 MG TABLET PO SCH ×3 (16:33→21:08)
[2018-06-14] MEDS: Gabapentin 400 MG CAPSULE PO SCH ×3 (16:33→21:08)
[2018-06-14] MEDS: hydrOXYzine pamoate 25 MG CAPSULE PO SCH ×2 (16:33→21:08)
[2018-06-14] MEDS: *HR* HYDROcodone/Acet 5/325 mg TABLET PO PRN (16:41)
[2018-06-14] MEDS: tiZANidine 4 MG TABLET PO SCH (16:41)
[2018-06-14] MEDS ORDERED: amLODIPine 5 MG TABLET PO SCH (18:00)
[2018-06-14] MEDS ORDERED: Lisinopril 20 MG TABLET PO SCH (18:00)
[2018-06-14] MEDS ORDERED: 0.9 % Sodium Chloride 250 ML ONE (18:36)
[2018-06-14] MEDS: 0.9 % Sodium Chloride 250 ML IVC ONE ×2 (18:40→20:04)
[2018-06-14] MEDS: Topiramate 100 MG TABLET PO SCH (21:08)
[2018-06-14] MEDS: Budesonide/Formoterol 160/4.5 1 PUFF INH IH SCH (22:48)
[2018-06-15] MEDS: Ipratropium 1 PUFF INHALER IH SCH ×4 (04:13→22:52)
[2018-06-15] MEDS: Acetaminophen/Butalbital/CaffeineTABLET PO PRN (04:33)
[2018-06-15 05:33] LABS: Basophils % 0.2 %; Eosinophils # 0.1 K/mcL (0.0-0.6); Eosinophils % 0.7 %; Hematocrit 40.1 % (35.3-44.9); Hemoglobin 13.4 g/dL (11.5-15.4); Immature Granulocytes % 0.4 % (0-4); Lymphocytes # 1.8 K/mcL (0.6-4.6); Lymphocytes % 16.2 %; Mean Corpuscular HGB Conc 33.4 g/dL (31.6-35.5); Mean Corpuscular Hemoglobin 29.3 pg (28.0-33.3); Mean Corpuscular Volume 87.7 fL (83.0-100.0); Mean Platelet Volume 11.3 fL (9.4-12.4); Monocytes # 0.7 K/mcL (0.0-1.3); Monocytes % 6.2 %; Neutrophils # 8.4 K/mcL (1.6-8.9); Platelet Count 280 K/mcL (140-400); Red Blood Count 4.57 M/mcL (3.82-4.97); Red Cell Distribution Width 13.7 % (11.5-14.5); Segmented Neutrophils % 76.3 %
[2018-06-15 05:53] LABS: Calcium 8.4 mg/dL (8.6-10.3); Potassium 3.2 mEq/L (3.5-5.1)
[2018-06-15] MEDS ORDERED: *HR* Enoxaparin 40 MG/0.4 ML SYRINGE SQ SCH (06:00)
[2018-06-15] MEDS: niCARdipine 40 MG/200 ML MLS IVC SCH (06:26)
[2018-06-15] MEDS: Insulin LISPRO 300 UNITS/3 ML VIAL SQ SCH ×4 (07:55→21:53)
[2018-06-15] MEDS ORDERED: Furosemide 40 MG/4 ML VIAL IVP SCH (09:00)
[2018-06-15] MEDS: aMILoride 5 MG TABLET PO SCH (09:09)
[2018-06-15] MEDS: Methocarbamol 500 MG TABLET PO SCH ×4 (09:09→21:53)
[2018-06-15] MEDS: Gabapentin 400 MG CAPSULE PO SCH ×3 (09:09→21:53)
[2018-06-15] MEDS: Cholecalciferol (D-3) 1,000 UNIT TABLET PO SCH (09:10)
[2018-06-15] MEDS: Multivit/Ca/Min/Fe/FA 1 TAB TABLET PO SCH (09:10)
[2018-06-15] MEDS: Isosorbide MONOnitrate (24 HR) 30 MG TAB.ER.24H PO SCH (09:10)
[2018-06-15] MEDS: hydrOXYzine pamoate 25 MG CAPSULE PO SCH ×3 (09:10→19:47)
[2018-06-15] MEDS: Loratadine 10 MG TABLET PO SCH (09:10)
[2018-06-15] MEDS: Aspirin Enteric Coated 81 MG Tablet PO SCH (09:10)
[2018-06-15] MEDS: Topiramate 100 MG TABLET PO SCH (09:10)
[2018-06-15 09:23] LABS: Calcium 8.3 mg/dL (8.6-10.3); Potassium 3.2 mEq/L (3.5-5.1)
[2018-06-15] MEDS: Budesonide/Formoterol 160/4.5 1 PUFF INH IH SCH ×2 (11:45→22:53)
[2018-06-15] MEDS: *HR* HYDROcodone/Acet 5/325 mg TABLET PO PRN (12:21)
[2018-06-15] MEDS ORDERED: 0.9 % Sodium Chloride 500 ML IVC PRN ×2 (12:41→17:43)
[2018-06-15] MEDS ORDERED: 0.9 % Sodium Chloride w KCl 40 MEQ/1,000 ML MLS IVC SCH (12:45)
--- NOTE | 2018-06-15 12:46 | Internal Med Progress Note ---
Hospitalist Progress Note - Encounter Date of Encounter: 06/15/18 Time of Encounter: 07:30 - Exam Vitals: Temp Pulse Resp BP Pulse Ox 98.4 F 68 16 92/57 93 06/15/18 12:01 06/15/18 12:01 06/15/18 12:01 06/15/18 12:01 06/15/18 12:01 Exam: General: Alert and oriented, not in acute distress. Cardiovascular:Normal S1 & S2, No JVD. Pulse regular. Lungs: clear to auscultation, no wheezes/rales Abdomen:Soft, non-tender, no rigidity. No bruit Extremities:No deformity or swelling - Assessment and Plan (1) Hypertensive emergency Current Visit: Yes Status: Resolved Assessment and Plan: started on nicardipine gtt yesterday with rather steep drop in her BP to as low as 80/40 at 7pm yesterday. Currently normotensive/borderline low took home meds in the AM will hold off on PM doses unless BP is above 180/110 chest pain and SOB improved, hold off on lasix as well (2) DAVIAN (acute kidney injury) Current Visit: Yes Status: Acute Assessment and Plan: Cr 0.7 -> 1.52 this AM repeat also shows Cr of 1.58 can certainly be a spectrum of HTN emergency but with her BP trend yesterday after being started on nicardipine gtt, ATN due to hypotension is more likely IVF, PRN boluses for hypotension monitor urine output Avoid nephrotoxins (3) Chest pain Current Visit: Yes Status: Resolved Assessment and Plan: Likely due to uncontrolled BP, resolved She reports a negative cath 2-3 years ago, cannot see it on chart serial trop -ve, EKG with no ischemic changes Echo unremarkable other than mild LVH and LV diastolic dysfunction (4) Hypokalemia Current Visit: Yes Status: Acute Assessment and Plan: Repleted IV (5) Diabetes mellitus, type 2 Current Visit: Yes Status: Chronic Assessment and Plan: FS ACHS Low-dose Sliding scale insulin (6) Asthma Current Visit: Yes Status: Chronic Assessment and Plan: No exacerbation at this time Duonebs q4h prn Resume home meds (7) Migraines Current Visit: Yes Status: Chronic Assessment and Plan: Resume home meds (8) Pulmonary edema Current Visit: Yes Status: Resolved Assessment and Plan: Due to Uncontrolled HTN Not hypoxic nor requires O2 developed DAVIAN overnight, likely due to pre-renal cause from diuresis + ATN due to hypotension hold off on lasix Echo report as above DVT Prophylaxis: SQ heparin - Time Spent with Patient Total time spent is greater than 50% in coordination of care (as documented) at patient's floor/unit and/or counseling patient: Plan of Care Discussed with: patient Internal Medicine: Result - Labs CBC & Chem 7: 06/15/18 05:16 06/15/18 08:39 Labs: Short CBC 06/15/18 Range/Units 05:16 WBC 11.0 (4.3-11.1) K/mcL Hgb 13.4 (11.5-15.4) g/dL Hct 40.1 (35.3-44.9) % Plt Count 280 (140-400) K/mcL Neutrophils # 8.4 (1.6-8.9) K/mcL BMP 06/15/18 06/15/18 05:16 08:39 Sodium 140 139 Potassium 3.2 L 3.2 L Chloride 101 99 Carbon Dioxide 28 29 BUN 23 H 26 H Creatinine 1.52 H 1.58 H Glucose 116 H 156 H Calcium 8.4 L 8.3 L Cardiac Enzymes 06/14/18 Range/Units 20:47 Troponin I < 0.03 (< 0.04) ng/mL - ABG Interpretation ABG results: PT/INR, D-dimer D-Dimer 416 ng/mLFEU (0-500) 06/14/18 05:58 - Impressions Impressions Echocardiogram 06/14/18 08:50 Impressions: LVEF 60-65%. Normal LV chamber size, wall thickness and systolic function. Mild concentric left ventricular hypertrophy. Mild left ventricular diastolic dysfunction. Normal right ventricular structure and function. No significant valvular dysfunction. No pulmonary hypertension. Left Ventricular Wall Motion: Rest Echo Findings All wall segments showed normal motion. Findings: Study Quality * Technically adequate exam. ECG Findings * Normal sinus rhythm. Left Ventricle * LVEF 60-65%. * Normal LV chamber size, wall thickness and systolic function. * Mild concentric left ventricular hypertrophy. * Mild left ventricular diastolic dysfunction. * Definity echo contrast was not used. Right Ventricle * Normal right ventricular structure and function. Left Atrium * Normal left atrial size. Right Atrium * Normal right atrial size. Interatrial Septum * No evidence of PFO by color Doppler. * Interatrial septum not well evaluated. Aortic Valve * Aortic valve not well visualized. * Mildly sclerotic aortic valve leaflets. * No aortic stenosis. * Trace aortic regurgitation. Mitral Valve * Normal mitral valve structure. * No mitral stenosis. * Trace mitral regurgitation. Tricuspid Valve * Normal tricuspid valve structure and function. * No tricuspid stenosis. * Trace tricuspid regurgitation. * Estimated RVSP is 25 mmHg. * Estimated RA pressure is 10 mmHg. * No pulmonary hypertension. Pulmonic Valve * Normal pulmonic valve structure and function. * No pulmonic stenosis. * Trace pulmonic regurgitation. Aorta * Normally sized aortic root. Pericardium * The pericardium appears normal. IVC * Normal IVC dimensions and inspiratory collapse. 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 home use Diabetes mellitus complication status: without complication Qualified Code(s): E11.9 - Type 2 diabetes mellitus without complications (6) Asthma Qualifiers: Asthma severity: mild Asthma persistence: intermittent Asthma complication type: uncomplicated Qualified Code(s): J45.20 - Mild intermittent asthma, uncomplicated (7) Migraines Qualifiers: Migraine type: unspecified Status migrainosus presence: without status migrainosus Intractability: not intractable Qualified Code(s): G43.909 - Migraine, unspecified, not intractable, without status migrainosus (8) Pulmonary edema Qualifiers: Chronicity: acute Qualified Code(s): J81.0 - Acute pulmonary edema
[2018-06-15] MEDS ORDERED: 0.9 % Sodium Chloride 1,000 ML IVC SCH (14:00)
[2018-06-15] MEDS ORDERED: 0.9 % Sodium Chloride 500 ML IVC ONE (15:01)
[2018-06-15 16:41] LABS: Calcium 8.2 mg/dL (8.6-10.3); Potassium 3.7 mEq/L (3.5-5.1)
[2018-06-15] MEDS: tiZANidine 4 MG TABLET PO SCH (17:51)
[2018-06-15] MEDS: *HR* OxyCODONE Immed Rel 5 MG TABLET PO PRN (17:55)
[2018-06-15] MEDS: 0.9 % Sodium Chloride 1,000 ML IVC SCH (19:30)
[2018-06-15 19:59] LABS: Sodium, Urine 167.1 mEq/L
[2018-06-16] MEDS: Ipratropium 1 PUFF INHALER IH SCH ×3 (03:39→15:59)
[2018-06-16] MEDS: 0.9 % Sodium Chloride 1,000 ML IVC SCH ×2 (03:55→14:23)
[2018-06-16 04:43] LABS: Calcium 8.5 mg/dL (8.6-10.3); Potassium 3.9 mEq/L (3.5-5.1)
[2018-06-16] MEDS: *HR* OxyCODONE Immed Rel 5 MG TABLET PO PRN (05:25)
[2018-06-16] MEDS ORDERED: Albuterol 2.5 MG/3 ML NEBULIZER IH PRN (07:34)
[2018-06-16] MEDS: Insulin LISPRO 300 UNITS/3 ML VIAL SQ SCH ×2 (08:07→12:05)
[2018-06-16] MEDS: Loratadine 10 MG TABLET PO SCH (09:00)
[2018-06-16] MEDS ORDERED: *HR* Heparin 5,000 UNIT/ML VIAL SQ SCH (09:00)
[2018-06-16] MEDS: Methocarbamol 500 MG TABLET PO SCH ×2 (09:00→14:23)
[2018-06-16] MEDS: Aspirin Enteric Coated 81 MG Tablet PO SCH (09:00)
[2018-06-16] MEDS: Isosorbide MONOnitrate (24 HR) 30 MG TAB.ER.24H PO SCH (09:00)
[2018-06-16] MEDS: hydrOXYzine pamoate 25 MG CAPSULE PO SCH ×2 (09:00→14:23)
[2018-06-16] MEDS ORDERED: Topiramate 100 MG TABLET PO SCH (09:00)
[2018-06-16] MEDS: Multivit/Ca/Min/Fe/FA 1 TAB TABLET PO SCH (09:00)
[2018-06-16] MEDS: Cholecalciferol (D-3) 1,000 UNIT TABLET PO SCH (09:00)
[2018-06-16] MEDS: Gabapentin 400 MG CAPSULE PO SCH (09:00)
--- NOTE | 2018-06-16 09:56 | Discharge Summary ---
- NOTES TO OUTPATIENT PROVIDER Notes to Outpatient Provider: Patient was admitted for hypertensive emergency with pulmonary edema. No evidence of renal artery stenosis on doppler 05/2017. Claim compliance to her medications but her BP rapidly dropped when her home meds were resumed in addition to nicardipine gtt. Also developed DAVIAN, likely prerenal, which improved with IVF. Given her rather rapid response to anti-HTN regime, I am not sure about her med compliance. Her amiloride, chlorthalidone, clonidine patch, lisinopril, lasix, and spironolactone will be held until she sees Dr. Dawson as outpatient later this week. Script for BMP was also given. Orders not resulted at time of discharge: Pending orders 06/16/18 17:00 US retroperitoneal comp [US] Routine Date of Encounter: 06/16/18 Time of Encounter: 07:45 - Discharge Diagnosis (1) Hypertensive emergency Priority: Primary Status: Resolved (2) DAVIAN (acute kidney injury) Priority: Secondary Status: Acute (3) Chest pain Priority: Secondary Status: Resolved Qualifiers: Chest pain type: precordial pain Qualified Code(s): R07.2 - Precordial pain (4) Hypokalemia Priority: Secondary Status: Acute (5) Diabetes mellitus, type 2 Priority: Secondary Status: Chronic Qualifiers: Diabetes mellitus retirement insulin use: without powderer use Diabetes mellitus complication status: without complication Qualified Code(s): E11.9 - Type 2 diabetes mellitus without complications (6) Asthma Priority: Secondary Status: Chronic Qualifiers: Asthma severity: mild Asthma persistence: intermittent Asthma complication type: uncomplicated Qualified Code(s): J45.20 - Mild intermittent asthma, uncomplicated (7) Migraines Priority: Secondary Status: Chronic Qualifiers: Migraine type: unspecified Status migrainosus presence: without status migrainosus Intractability: not intractable Qualified Code(s): G43.909 - Migraine, unspecified, not intractable, without status migrainosus (8) Pulmonary edema Priority: Secondary Status: Resolved Qualifiers: Chronicity: acute Qualified Code(s): J81.0 - Acute pulmonary edema Hospital course: Ms. Neves is a 52 year old female was admitted for hypertensive emergency with pulmonary edema. No evidence of renal artery stenosis on doppler 05/2017. Claim compliance to her medications but her BP rapidly dropped when her home meds were resumed in addition to nicardipine gtt. Also developed DAVIAN, likely prerenal, which eventually required IVF to improve. Given her rather rapid response to anti-HTN regime, I am not sure about her med compliance. Her amiloride, chlorthalidone, clonidine patch, lisinopril, lasix, and spironolactone will be held until she sees Dr. Dawson as outpatient later this week. Script for BMP was also given. Discharge discussed with: patient, nurse - Time Spent with Patient Total time spent providing and/or coordinating discharge services: 33 mins - Discharge Medications Home Medications: Aspirin Enteric Coated [Aspirin EC] 81 mg PO DAILY 05/20/15 [History] Butalb/Acetaminophen/Caffeine [Fioricet 50-300-40 mg Capsule] 1 cap PO Q4H PRN 05/20/15 [History] metFORMIN [Glucophage] 250 mg PO DAILY 05/20/15 [History] Atorvastatin [Lipitor] 40 mg PO HS 09/21/15 [History] Carvedilol [Coreg] 25 mg PO BID 09/21/15 [History] Esomeprazole Magnesium [Nexium] 40 mg PO DAILY 07/15/17 [History] Gabapentin [Neurontin] 800 mg PO QID 07/15/17 [History] Methocarbamol [Robaxin] 500 mg PO QID 07/15/17 [History] Tizanidine HCl [Zanaflex] 4 mg PO QPM 07/15/17 [History] Albuterol Neb [Proventil Neb] 2.5 mg IH QID 09/30/17 [History] Budesonide/Formoterol 160/4.5 [Symbicort 160/4.5] 2 puff IH BIDR 09/30/17 [History] Cholecalciferol (D-3) [Vitamin D] 1,000 unit PO DAILY 09/30/17 [History] Diclofenac Sodium [Voltaren] 1 appl TP QID PRN 09/30/17 [History] Ipratropium [ATROVENT Inhaler] 2 puff IH QID 09/30/17 [History] Multivit-Min/FA/Lycopen/Lutein [Certavite Sr-Antioxidant Tab] 1 tab PO DAILY 09/30/17 [History] Nitroglycerin [Nitrostat] 0.4 mg SL Q5M PRN 09/30/17 [History] Potassium Chloride [K-Tab ER] 20 meq PO DAILY 09/30/17 [History] Promethazine [Phenergan] 25 mg PO Q12H PRN 09/30/17 [History] Ergocalciferol (VITAMIN D2) [Vitamin D2] 50,000 unit PO QWEEK 02/16/18 [History] Albuterol Sulfate [Albuterol Inhaler] 1 puff IH Q4H PRN 06/14/18 [History] Amlodipine Besylate 10 mg PO QPM 06/14/18 [History] Citalopram Hydrobromide [Citalopram HBr] 40 mg PO QPM 06/14/18 [History] Isosorbide MONOnitrate [Isosorbide Mononitrate ER] 30 mg PO DAILY 06/14/18 [History] Loratadine [Allergy Relief] 10 mg PO DAILY 06/14/18 [History] Topiramate [Topamax] 100 mg PO BID 06/14/18 [History] hydrOXYzine HCl [Hydroxyzine HCl] 25 mg PO TID 06/14/18 [History] Allergies/Adverse Reactions: Allergy/AdvReac Type Severity Reaction Status Date / Time naproxen Allergy Hives Verified 06/14/18 09:26 Date of admission: 06/14/18 14:24 Primary care physician: Alyson Fitzpatrick Constitutional Vitals: Temp Pulse Resp BP Pulse Ox 98.3 F 54 16 125/73 96 06/16/18 07:45 06/16/18 07:45 06/16/18 07:45 06/16/18 07:45 06/16/18 07:45 General appearance: Present: mild distress, A&O X 3, pleasant, obese Exam: General: Alert and oriented, not in acute distress. Cardiovascular:Normal S1 & S2, No JVD. Pulse regular. Lungs: clear to auscultation, no wheezes/rales Abdomen:Soft, non-tender, no rigidity. No bruit Extremities:No deformity or swelling - Patient Status Disposition: Home, Self-Care Condition: Fair - Discharge Instructions Instructions: Diabetes Mellitus Type 2 in Adults (DC), Chest Pain (DC), Chronic Hypertension (DC) Follow Up With: Rosalie Cosby DO [Primary Care Provider] - Gerald Dawson MD [Partnered Physician] - Additional Instructions: BMP in 2 days and follow up with Dr. Dawson for labile BP - Diet and Activity Activity: resume usual activities as tolerated Diet: diabetic diet
[2018-06-16] MEDS: Budesonide/Formoterol 160/4.5 1 PUFF INH IH SCH (10:48)
[2018-06-16 16:45] VITALS: BP 151/80
--- NOTE | 2018-06-17 07:27 | Electrocardiograph Report ---
[address] [address] Test Date: 2018-06-14 Pat Name: Azalea Neves Department: [id number] Room: 2A14 Gender: F Rn Integrity: : 1965 Requested By: Kenny Dc Order Number: [id number] Reading MD: Bentley Dover Measurements Intervals [place] Rate: 69 P: 54 RI: 149 QRS: 95 QRSD: 103 T: 45 QT: 421 QTc: 451 Interpretive Statements Sinus rhythm Borderline right axis deviation Electronically Signed On 06-17-2018 7:25:25 EST by Bentley Dover
--- NOTE | 2018-06-17 07:28 | Electrocardiograph Report ---
[address] [place], [place] [address] Test Date: 2018-06-14 Pat Name: Azalea Neves Department: [id number] Room: 2A14 Gender: F [employer] Metallurgist: : 1965 Requested By: Saturnino Jaime Order Number: [id number] Reading MD: Bentley Dover Measurements Intervals [place] Rate: 61 P: 20 RI: 140 QRS: 106 QRSD: 105 T: 32 QT: 445 QTc: 449 Interpretive Statements Sinus rhythm Possible left posterior fascicular block Electronically Signed On 06-17-2018 7:26:38 EST by Bentley Dover
== END 2018-06-16 18:05 | disposition home or self-care (01) | DRG 199 ==
LOC: EMEROOARM 05:40 → SUATTDRO 14:24 → ICNU 14:24 → 2ANU 06-15 11:06
PROVIDERS: ADMIT Internal Medicine; ATTEND Internal Medicine